=== PATIENT | female | born 1970 | race Caucasian/White ===

== ENCOUNTER 2020-10-28 14:56 | Outpatient (REF) | payer OTHER, SELFPAY ==
--- NOTE | ~2020-10-28 | MM_ITS ---
EXAMINATION: MM SCREENING DIGITAL BREAST TOMOSYNTHESIS, BILATERAL CLINICAL INFORMATION: Screening. Asymptomatic. The lifetime risk of breast cancer based on the Tyrer-Cuzick Model is 8%. COMPARISON: Mammography: 01/07/2018, 06/04/2015 TECHNIQUE: Digital breast tomosynthesis is performed in both the craniocaudal and mediolateral oblique views along with computer-aided detection (CAD). Synthesized 2D images are generated from the tomosynthesis. FINDINGS: There are scattered areas of fibroglandular density (ACR BI-RADS breast composition Category b). There are no significant masses, abnormal calcifications, or other abnormalities. There is no developing density. The axilla and skin contours are unremarkable. MM/MM tomosynthesis screening BI IMPRESSION: No mammographic evidence of malignancy. ASSESSMENT: BI-RADS 1: Negative RECOMMENDATION: Routine annual mammography screening. This patient's information was entered into a reminder system with a target due date for their next mammogram.
== END 2020-10-28 14:57 | disposition home or self-care (01) ==
LOC: HO.MAMMO 14:56
PROVIDERS: Visit Provider Obstetrics & Gynecology
DX: Z12.31 Encounter for screening mammogram for malignant neoplasm of breast (principal)
CPT/HCPCS: 77063; 77067

== ENCOUNTER 2021-11-14 13:10 | Outpatient (REF) | payer OTHER, SELFPAY ==
--- NOTE | ~2021-11-14 | MM_ITS ---
EXAMINATION: MM SCREENING DIGITAL BREAST TOMOSYNTHESIS, BILATERAL CLINICAL INFORMATION: Screening. Asymptomatic. The lifetime risk of breast cancer based on the Tyrer-Cuzick Model is 7%. COMPARISON: Mammography: 10/28/2020, 01/07/2018, 06/04/2015 TECHNIQUE: Digital breast tomosynthesis is performed in both the craniocaudal and mediolateral oblique views along with computer-aided detection (CAD). Synthesized 2D images are generated from the tomosynthesis. FINDINGS: There are scattered areas of fibroglandular density (ACR BI-RADS breast composition Category b). There are no significant masses, abnormal calcifications, or other abnormalities. Parenchymal pattern is similar to prior studies. The axilla and skin contours are unremarkable. MM/MM tomosynthesis screening BI IMPRESSION: No mammographic evidence of malignancy. ASSESSMENT: BI-RADS 1: Negative RECOMMENDATION: Routine annual mammography screening. This patient's information was entered into a reminder system with a target due date for their next mammogram.
== END 2021-11-14 13:11 | disposition home or self-care (01) ==
LOC: HO.MAMMO 13:10
PROVIDERS: PCP Internal Medicine; Visit Provider Obstetrics & Gynecology
DX: Z12.31 Encounter for screening mammogram for malignant neoplasm of breast (principal)
CPT/HCPCS: 77063; 77067

== ENCOUNTER 2022-11-20 13:06 | Outpatient (REF) | payer OTHER, SELFPAY ==
--- NOTE | ~2022-11-20 | MM_ITS ---
EXAMINATION: MM SCREENING DIGITAL BREAST TOMOSYNTHESIS, BILATERAL CLINICAL INFORMATION: Screening. Asymptomatic. The lifetime risk of breast cancer based on the Tyrer-Cuzick Model is 6%. COMPARISON: Mammography: 11/14/2021, 10/28/2020, 01/07/2018 TECHNIQUE: Digital breast tomosynthesis is performed in both the craniocaudal and mediolateral oblique views along with computer-aided detection (CAD). Synthesized 2D images are generated from the tomosynthesis. FINDINGS: There are scattered areas of fibroglandular density (ACR BI-RADS breast composition Category b). There are no significant masses, abnormal calcifications, or other abnormalities. No architectural abnormality or developing density. Incidental intramammary nodes bilateral posterior upper outer quadrants. Small dermal lesions again seen overlying posterior medial left breast. No significant changes. MM/MM tomosynthesis screening BI IMPRESSION: No mammographic evidence of malignancy. ASSESSMENT: BI-RADS 2: Benign RECOMMENDATION: Routine annual mammography screening. This patient's information was entered into a reminder system with a target due date for their next mammogram.
== END 2022-11-20 13:07 | disposition home or self-care (01) ==
LOC: HO.MAMMO 13:06
PROVIDERS: PCP Internal Medicine; Visit Provider Internal Medicine
DX: Z12.31 Encounter for screening mammogram for malignant neoplasm of breast (principal)
CPT/HCPCS: 77063; 77067

== ENCOUNTER 2023-11-25 12:47 | Outpatient (REF) | payer BC, SELFPAY | END 2023-11-25 12:48 | disposition home or self-care (01) | LOC: HO.MAMMO 12:47 | PROVIDERS: PCP Internal Medicine; Visit Provider Internal Medicine | DX: Z12.31 Encounter for screening mammogram for malignant neoplasm of breast (principal) | CPT/HCPCS: 77063; 77067 ==

== ENCOUNTER → 2023-11-25 13:00 | Outpatient (BNV) | payer BC, SELFPAY | PROVIDERS: PCP Internal Medicine; Visit Provider Radiology Diagnostic Radiology | DX: Z12.31 Encounter for screening mammogram for malignant neoplasm of breast (principal) | CPT/HCPCS: 77063; 77067 ==

== ENCOUNTER 2025-01-12 15:55 | Outpatient (AMB) | payer BC, SELFPAY ==
--- OUTSIDE RECORDS SUMMARY | 2025-01-12 17:27 | XMS_ITS | Clinical Summary ---
Author Organization [facility] Address [address] [facility] [address] [place] [address] Phone Care Team Providers Care Solids Control Technician Name Role Phone Kya Delarosa Primary Care Provide r Allergies Active Allergy Reactions Criticality Noted Date Comments Bee Pollen Swelling 01/06/2019 Medications SYNTHROID 125 mcg tablet Take 125 mcg by mouth daily. 2 12/01/2018 Active buPROPion (WELLBUTRIN SR) 150 MG SR 12 hr tablet Take 150 mg by mouth. 3 12/01/2018 Active valACYclovir (VALTREX) 500 MG tablet Take 500 mg by mouth daily. 2 12/01/2018 Active Active Problems Problem Noted Date Diagnosed Date Thyroiditis, subacute 01/09/2019 Resolved Problems Problem Noted Date Diagnosed Date Resolved Date Thyroiditis, autoimmune 01/06/201912/25 Family History Medical History Relation Comments Thyroid disease Maternal Aunt Thyroid disease Maternal Grandfather Heart attack Mother Thyroid disease Mother Relation Status Comments Father Maternal Aunt Maternal Grandfather Mother (Age 51) Social History Tobacco Use Types Packs/Day Years Used Date Smoking Tobacco: Never Smokeless Tobacco: Never Alcohol Use Standard Drinks/Week Comments Yes 0 (1 standard drink = 0.6 oz pur e alcohol) Education Answer Date Recorded Are you interested in more education? Not on iban e 09/21/2022 Are you concerned about learning? Not on file 09/21/2022 No 09/21/2022 No 09/21/2022 Digital Access Answer Date Recorded No 10/20/2022 No 10/20/2022 No 10/20/2022 Reliable internet access at home? Not on file 10/20/2022 Device with a working camera? 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 Not on file Not on f ile Last Filed Vital Signs Vital Sign Reading Time Taken Comments Blood Pressure 130/70 01/29/2019 2:15 PM EDT Pulse - - Temperature - - Respiratory Rate - - Oxygen Saturation - - Inhaled Oxygen Concentration - - Weight 72 kg (158 lb 12.8 oz) 01/29/2019 2:15 PM EDT Height 168.9 cm (5' 6.5 ) 01/06/2019 1:52 PM EDT Body Mass Index 25.25 01/06/2019 1:52 PM EDT Plan of Treatment Health Maintenance Due Date Last Done Comments Adult Td,Tdap Booster 1970 LIPID PANEL 1970 DEPRESSION SCREENING 1982 HEPATITIS C SCREENING 1988 HIV ONE-TIME SCREENING (18-6 5 YEARS) 1988 PAP SMEAR 1991 MAMMOGRAM 2010 COLOGUARD 2015 COLONOSCOPY 2015 COLORECTAL CANCER SCREENING 2015 FIT TEST 2015 FOBT 2015 SIGMOIDOSCOPY 2015 VIRTUAL COLONOSCOPY 2015 TSH LEVEL 01/30/2020 01/29/2019, 01/06/2019 PNEUMOCOCCAL VACCINES (50+ years) (1 of 1 - PCV) 2020 ZOSTER VACCINES (1 of 2) 2020 COVID-19 VACCINE (2 - 2023-2 5 season) 2024 09/01/2020 SMOKING STATUS SCREENING (On ce After 26 Yrs) Completed 01/06/2019 HEPATITIS A VACCINES Aged Out No long er eligible based on patient's age to complete this topic HIB VACCINES Aged Out No longer eligi ble based on patient's age to complete this topic MENINGOCOCCAL VACCINES (ACWY) Aged Out No longer eligible based on patient's age to complete this topic MENINGOCOCCAL VACCINES (B) Aged Out N o longer eligible based on patient's age to complete this topic Medical Devices Not on file Procedures Procedure Name Priority Date/Time Associated Diagnosis Comments TSH STAT 01/29/2019 3:23 PM EDT Hyperthyroidism from Last 3 Months or Most Recently Relevant to Health Maintenance Results * TSH (01/29/2019 3:23 PM EDT) TSH 3.28 0.27 - 4.20 uIU/mL [facility] Blood 01/29/2019 3:23 PM EDT 01/29/2019 3:28 PM EDT us Mike Andino MD LAB BLOOD ORDERABLES Final Resu lt [address] [address] from Last 3 Months or Most Recently Relevant to Health Maintenance [facility] [address] [place] [address] O Care Teams Solids Control Technician Relationship Specialty Start Date End Date Kya Delarosa DO 75 [facility] 1 [place] [address] PCP - General Internal Medicine 12/31/18 Additional Source Comments The information contained in this document represents components of the legal health record. It is not the complete legal health record.[facility]
== END 2025-01-12 15:57 | disposition home or self-care (01) ==
LOC: HO.HMGAL 15:55
PROVIDERS: PCP Internal Medicine; Visit Provider Registered Nurse Emergency
DX: J30.89 Other allergic rhinitis (principal)
CPT/HCPCS: 95117; 95165

== ENCOUNTER 2025-01-13 10:57 | Outpatient (REF) | payer BC, SELFPAY ==
--- NOTE | ~2025-01-13 | MM_ITS ---
EXAMINATION: MM SCREENING DIGITAL BREAST TOMOSYNTHESIS, BILATERAL CLINICAL INFORMATION: Screening. Asymptomatic. COMPARISON: Mammography: Comparison is made with available priors TECHNIQUE: Digital breast mammography with tomosynthesis is performed in both the craniocaudal and mediolateral oblique views along with computer-aided detection (CAD). FINDINGS: There are scattered areas of fibroglandular density (ACR BI-RADS breast composition Category b). There are no significant masses, abnormal calcifications, or other abnormalities. MM/MM tomosynthesis screening BI IMPRESSION: No mammographic evidence of malignancy. ASSESSMENT: BI-RADS BI-RADS 1 - Negative RECOMMENDATION: Routine annual mammography screening. 1 year F/U This examination should not preclude the clinical evaluation of a suspicious palpable abnormality. This patient's information was entered into a reminder system with a target due date for their next mammogram. Electronically signed by: Sharon Garner DO 01/14/2025 04:55 PM EDT
--- OUTSIDE RECORDS SUMMARY | 2025-01-13 12:20 | XMS_ITS | Clinical Summary ---
Author Organization [facility] Address [address] [facility] [address] [place] [address] Phone Care Team Providers Care Field Sales Specialist Name Role Phone Kya Delarosa Primary Care [...] EDT) TSH 3.28 0.27 - 4.20 uIU/mL [facility] Blood 01/29/2019 3:23 PM EDT 01/29/2019 3:28 PM EDT us Mike Andino MD LAB BLOOD ORDERABLES Final Resu lt [address] [address] from Last 3 Months or Most Recently Relevant to Health Maintenance [facility] [address] [place], [place] [address] O Care Teams Field Sales Specialist Relationship Specialty Start Date End Date Kya Delarosa DO 75 [facility] 1 [place] [address] PCP - General Internal Medicine 12/31/18 Additional Source Comments The information contained in this document represents components of the legal health record. It is not the complete legal health record.[facility]
== END 2025-01-13 10:58 | disposition home or self-care (01) ==
LOC: HO.MAMMO 10:57
PROVIDERS: PCP Internal Medicine; Visit Provider Internal Medicine
DX: Z12.31 Encounter for screening mammogram for malignant neoplasm of breast (principal)
CPT/HCPCS: 77063; 77067

== ENCOUNTER → 2025-01-13 11:15 | Outpatient (BNV) | payer BC, SELFPAY | PROVIDERS: PCP Internal Medicine; Visit Provider Internal Medicine | DX: Z12.31 Encounter for screening mammogram for malignant neoplasm of breast (principal) | CPT/HCPCS: 77063; 77067 ==

== ENCOUNTER 2025-01-18 13:00 | Outpatient (AMB) | payer BC, SELFPAY ==
--- OUTSIDE RECORDS SUMMARY | 2025-01-18 14:14 | XMS_ITS | Clinical Summary ---
Author Organization [facility] Address [address] [facility] [address] [place] [address] Phone Care Team Providers Care Panama Hat Hydraulic Press Operator Name Role Phone Kya Delarosa Primary Care [...] (2 - 2023-2 5 season) 2024 09/01/2020 INFLUENZA VACCINE (#1) 2024 SMOKING STATUS SCREENING (On ce After 26 [...] EDT) TSH 3.28 0.27 - 4.20 uIU/mL [facility] Blood 01/29/2019 3:23 PM EDT 01/29/2019 3:28 PM EDT Mike Andino MD LAB BLOOD ORDERABLES Final Resu lt [address] [address] from Last 3 Months or Most Recently Relevant to Health Maintenance Insurance O [address] [place], [place] [address] [place], [place] [address] [place] [address] [address] HMO O O HMO Care Teams Panama Hat Hydraulic Press Operator Relationship Specialty Start Date End Date [place] Maurizioelvia Dee DO 75 [facility] 1 [place] [address] PCP - General Internal Medicine 12/31/18 Additional Source Comments The information contained in this document represents components of the legal health record. It is not the complete legal health record.[facility]
== END 2025-01-18 13:14 | disposition home or self-care (01) ==
LOC: HO.HMGAL 13:00
PROVIDERS: PCP Internal Medicine; Visit Provider Registered Nurse Emergency
DX: J30.89 Other allergic rhinitis (principal)
CPT/HCPCS: 95117; 95165

== ENCOUNTER 2025-02-01 16:07 | Outpatient (AMB) | payer BC, SELFPAY ==
--- OUTSIDE RECORDS SUMMARY | 2025-02-01 18:45 | XMS_ITS | Clinical Summary ---
Author Organization [facility] Address [address] [facility] [address] [place] [address] Phone Care Team Providers Care Director Paid Media Name Role Phone Kya Delarosa Primary Care [...] 2020 ZOSTER VACCINES (1 of 2) 2020 INFLUENZA VACCINE (#1) 2024 COVID-19 VACCINE (2 - 2024-2 6 season) 2025 09/01/2020 SMOKING STATUS SCREENING (On ce After [...] EDT) TSH 3.28 0.27 - 4.20 uIU/mL [facility] Blood 01/29/2019 3:23 PM EDT 01/29/2019 3:28 PM EDT Mike Andino MD LAB BLOOD ORDERABLES Final Resu lt [address] [address] from Last 3 Months or Most Recently Relevant to Health Maintenance Insurance [place] [address] [place], [place] [address] [place] [address] [place], [place] [address] [address] HMO O O HMO Care Teams Director Paid Media Relationship Specialty Start Date End Date [place] Maurizioelvia Dee DO 75 [facility] 1 [place] [address] PCP - General Internal Medicine 12/31/18 Additional Source Comments The information contained in this document represents components of the legal health record. It is not the complete legal health record.[facility]
== END 2025-02-01 16:08 | disposition home or self-care (01) ==
LOC: HO.HMGAL 16:07
PROVIDERS: PCP Internal Medicine; Visit Provider Registered Nurse Emergency
DX: J30.89 Other allergic rhinitis (principal)
CPT/HCPCS: 95117; 95165

== ENCOUNTER 2025-02-08 16:12 | Outpatient (AMB) | payer BC, SELFPAY ==
--- OUTSIDE RECORDS SUMMARY | 2025-02-08 21:21 | XMS_ITS | Clinical Summary ---
Author Organization [facility] Address [address] [facility] [address] [place] [address] Phone Care Team Providers Care Kitchen Steward Name Role Phone Kya Delarosa Primary Care [...] EDT) TSH 3.28 0.27 - 4.20 uIU/mL [facility] Blood 01/29/2019 3:23 PM EDT 01/29/2019 3:28 PM EDT Mike Andino MD LAB BLOOD ORDERABLES Final Resu lt [address] [address] from Last 3 Months or Most Recently Relevant to Health Maintenance Insurance [place] [address] [place] [address] [place] [address] [place], [place] [address] [address] HMO O O HMO Care Teams Kitchen Steward Relationship Specialty Start Date End Date [place] Maurizioelvia Dee DO 75 [facility] 1 [place] [address] PCP - General Internal Medicine 12/31/18 Additional Source Comments The information contained in this document represents components of the legal health record. It is not the complete legal health record.[facility]
== END 2025-02-08 16:15 | disposition home or self-care (01) ==
LOC: HO.HMGAL 16:12
PROVIDERS: PCP Internal Medicine; Visit Provider Registered Nurse Emergency
DX: J30.89 Other allergic rhinitis (principal)
CPT/HCPCS: 95117; 95165

== ENCOUNTER 2025-02-15 16:25 | Outpatient (AMB) | payer BC, SELFPAY | END 2025-02-15 16:26 | disposition home or self-care (01) | LOC: HO.HMGAL 16:25 | PROVIDERS: PCP Internal Medicine; Visit Provider Registered Nurse Emergency | DX: J30.89 Other allergic rhinitis (principal) | CPT/HCPCS: 95117; 95165 ==

== ENCOUNTER 2025-03-01 16:00 | Outpatient (AMB) | payer BC, SELFPAY ==
--- OUTSIDE RECORDS SUMMARY | 2025-03-01 18:18 | XMS_ITS | Clinical Summary ---
Author Organization [facility] Address [address] [facility] [address] [place] [address] Phone Care Team Providers Care Mechatronics Technologist Name Role Phone Kya Delarosa Primary Care [...] EDT) TSH 3.28 0.27 - 4.20 uIU/mL [facility] Blood 01/29/2019 3:23 PM EDT 01/29/2019 3:28 PM EDT Mike Andino MD LAB BLOOD ORDERABLES Final Resu lt [address] [address] from Last 3 Months or Most Recently Relevant to Health Maintenance Insurance [place] [address] [place] [address] [place], [place] [address] [place] [address] [address] HMO O O HMO [facility] Address: [facility] [address] [place] [address] Care Teams Mechatronics Technologist Relationship Specialty Start Date End Date [place] Maurizioelvia Dee DO 75 [facility] 1 [place] [address] PCP - General Internal Medicine 12/31/18 Additional Source Comments The information contained in this document represents components of the legal health record. It is not the complete legal health record.[facility]
== END 2025-03-01 16:01 | disposition home or self-care (01) ==
LOC: HO.HMGAL 16:00
PROVIDERS: PCP Internal Medicine; Visit Provider Registered Nurse Emergency
DX: J30.89 Other allergic rhinitis (principal)
CPT/HCPCS: 95117; 95165

== ENCOUNTER 2025-03-15 13:36 | Outpatient (AMB) | payer BC, SELFPAY ==
--- OUTSIDE RECORDS SUMMARY | 2025-03-15 16:43 | XMS_ITS | Clinical Summary ---
Author Organization [facility] Address [address] [employer] [facility] [address] [place] [address] Phone Care Team Providers Care Cut And Print Machine Operator Name Role Phone Kya Delarosa Primary [...] (2 - 2024-2 6 season) 2025 09/01/2020 RSV VACCINE (1 - 1-dose 75+ series) 2045 SMOKING STATUS SCREENING (On ce After 26 [...] EDT) TSH 3.28 0.27 - 4.20 uIU/mL [facility] Blood 01/29/2019 3:23 PM EDT 01/29/2019 3:28 PM EDT us Mike Andino MD LAB BLOOD [place] [address] from Last 3 Months or Most Recently Relevant to Health Maintenance Insurance O O O [address] [place] [address] [place], [place] [address] [place], [place] [address]O Care Teams Cut And Print Machine Operator Relationship Specialty Start Date End Date Kya Delarosa DO 75 [facility] 1 [place] [address] PCP - General Internal Medicine 12/31/18 Additional Source Comments The information contained in this document represents components of the legal health record. It is not the complete legal health record.[facility]
== END 2025-03-15 13:37 | disposition home or self-care (01) ==
LOC: HO.HMGAL 13:36
PROVIDERS: PCP Internal Medicine; Visit Provider Registered Nurse Emergency
DX: J30.89 Other allergic rhinitis (principal)
CPT/HCPCS: 95117; 95165

== ENCOUNTER 2025-04-05 15:56 | Outpatient (AMB) | payer BC, SELFPAY ==
--- OUTSIDE RECORDS SUMMARY | 2025-04-05 17:52 | XMS_ITS | Clinical Summary ---
Author Organization [facility] Address [address] [email or web address] [address] [place] [address] Phone Care Team Providers Care Loft Worker Name Role Phone Kya Delarosa Primary Care [...] Procedure Name Priority Date/Time Associated Diagnosis Comments THYROID STIMULATING HORMONE (TSH) STAT 01/29/2019 3:23 PM EDT Hyperthyroidism from Last 3 Months or Most Recently Relevant to Health Maintenance Results * TSH (01/29/2019 3:23 PM EDT) TSH 3.28 0.27 - 4.20 uIU/mL [facility] Blood 01/29/2019 3:23 PM EDT 01/29/2019 3:28 PM EDT us Mike Andino MD LAB BLOOD BKR ORDERABLES Final Result [address] [address] from Last 3 Months or Most Recently Relevant to Health Maintenance Insurance O O O [address] [place], [place] [address] [place], [place] [address] Address: [facility] [address] [place] [address] Care Teams Loft Worker Relationship Specialty Start Date End Date Kya Delarosa DO 75 [facility] 1 [place] [address] PCP - General Internal Medicine 12/31/18 Additional Source Comments The information contained in this document represents components of the legal health record. It is not the complete legal health record.[facility]
== END 2025-04-05 15:56 | disposition home or self-care (01) ==
LOC: HO.HMGAL 15:56
PROVIDERS: PCP Internal Medicine; Visit Provider Registered Nurse Emergency
DX: J30.89 Other allergic rhinitis (principal)
CPT/HCPCS: 95117; 95165

== ENCOUNTER 2025-04-21 09:31 | Outpatient (AMB) | payer BC, SELFPAY ==
--- OUTSIDE RECORDS SUMMARY | 2025-04-21 10:42 | XMS_ITS | Clinical Summary ---
Author Organization [facility] Address [address] [facility] [address] [place] [address] Phone Care Team Providers Care Radio Adjuster Name Role Phone Kya Delarosa Primary Care [...] MD LAB BLOOD BKR ORDERABLES Final Result [address] [address] from Last 3 Months or Most Recently Relevant to Health Maintenance Insurance O O O [address] [place], [place] [address]O [address] [place] [address]O [facility] Care Teams Radio Adjuster Relationship Specialty Start Date End Date Kya Delarosa DO 75 [facility] 1 [place] [address] PCP - General Internal Medicine 12/31/18 Additional Source Comments The information contained in this document represents components of the legal health record. It is not the complete legal health record.[facility]
== END 2025-04-21 09:35 | disposition home or self-care (01) ==
LOC: HO.HMGAL 09:31
PROVIDERS: PCP Internal Medicine; Visit Provider Registered Nurse Emergency
DX: J30.89 Other allergic rhinitis (principal)
CPT/HCPCS: 95117; 95165

== ENCOUNTER 2025-05-05 16:19 | Outpatient (AMB) | payer BC, SELFPAY ==
--- OUTSIDE RECORDS SUMMARY | 2025-05-06 00:50 | XMS_ITS | Clinical Summary ---
Author Organization [facility] Address [address] [employer] [facility] [address] [place] [address] Phone Care Team Providers Care Oil Burner Installer Name Role Phone Kya Delarosa Primary Care [...] EDT) TSH 3.28 0.27 - 4.20 uIU/mL [facility] Blood 01/29/2019 3:23 PM EDT 01/29/2019 3:28 PM EDT us Mike Andino MD LAB BLOOD BKR ORDERABLES Final Result [address] [address] from Last 3 Months or Most Recently Relevant to Health Maintenance Insurance O O O [address] [place], [place] [address] [place], [place] [address] Care Teams Oil Burner Installer Relationship Specialty Start Date End Date Kya Delarosa DO 75 [facility] 1 [place] [address] PCP - General Internal Medicine 12/31/18 Additional Source Comments The information contained in this document represents components of the legal health record. It is not the complete legal health record.[facility]
== END 2025-05-05 16:19 | disposition home or self-care (01) ==
LOC: HO.HMGAL 16:19
PROVIDERS: PCP Internal Medicine; Visit Provider Registered Nurse Emergency
DX: J30.89 Other allergic rhinitis (principal)
CPT/HCPCS: 95117; 95165